=== PATIENT | male | born 1945 | race Caucasian/White ===

== ENCOUNTER → 2016-09-30 | Outpatient (CLI) | payer OTHER ==
[~2016-09-30] MED LIST: KEFLEX500 MG PO; NORCO 5/3251 TABLET PO; ZOFRAN4 MG PO
== END | disposition home or self-care (01) ==
DX: M17.12 Unilateral primary osteoarthritis, left knee (principal); M25.562 Pain in left knee; M25.662 Stiffness of left knee, not elsewhere classified; R26.2 Difficulty in walking, not elsewhere classified; M62.89 Other specified disorders of muscle
CPT/HCPCS: 97110 GP; 97150 GO; 97161 GP; 97165 GO; G8978 GP; G8979 GP; G8980 GP; G8984 GO; G8985 GO; G8986 GO

== ENCOUNTER 2016-11-11 05:43 | Inpatient (IN) | payer OTHER ==
[2016-11-11] VITALS (7 sets, daily range): BP systolic 101–163; BP diastolic 56–77
[~2016-11-11] VITALS: Ht 175.3 cm; Wt 116.3 kg
[~2016-11-11 05:43] MED LIST changes: +DAILY VITE1 EAC1 PO; +IBUPROFEN200 M1 PO; +ZESTRIL2.5 MG PO
[2016-11-11 11:04] LABS: HEMATOCRIT 41.8 % (38.0-50.0); MCH 29.4 PG (29.0-34.0); MCHC 31.6 G/DL (30.0-36.0); MCV 93.1 FL (86-99); MEAN PLAT.VOLUME 10.8 uM^3 (9.0-12.4); PLATELET COUNT 202 K/uL (156-360); RBC DIS.WIDTH-CV 12.6 % (11.8-14.6); RBC DIS.WIDTH-SD 42.4 % (39-53); RED BLOOD COUNT 4.49 M/uL (4.00-5.50); WHITE BLOOD COUNT 6.8 K/uL (4.1-10.2)
[2016-11-12 00:19] VITALS: BP 129/65
[2016-11-12 04:15] VITALS: BP 126/60
[2016-11-12 06:09] LABS: HEMATOCRIT 39.3 % (38.0-50.0); MCV 91.4 FL (86-99)
[2016-11-12 06:26] LABS: ANION GAP 7 MEQ/L (2-14); CHLORIDE 98 MEQ/L (99-109); GFR ESTIMATE (CALCULATED) > 59 mL/min/; GLUCOSE 127 mg/dL (70-99); SAMPLE HEMOLYSIS CHECK 0; SAMPLE ICTERIC CHECK 0; SAMPLE LIPEMIA CHECK 0; SODIUM 133 MEQ/L (136-147); UREA NITROGEN (BUN) 14 mg/dL (9-23)
[2016-11-12 08:00] VITALS: BP 137/60
[2016-11-12 12:14] VITALS: BP 136/63
[2016-11-12 16:32] VITALS: BP 140/80
[2016-11-12 20:21] VITALS: BP 130/75
[2016-11-13 00:15] VITALS: BP 121/73
[2016-11-13 04:00] VITALS: BP 124/62
[2016-11-13 04:57] LABS: MCV 92.5 FL (86-99)
[2016-11-13 08:35] VITALS: BP 117/63
[2016-11-13] MEDS ORDERED: SENNA PLUS TAB1 EACH PO (09:13)
[2016-11-13] MEDS ORDERED: HYDROCODON-ACE1 EAC7 PO (09:13)
[2016-11-13] MEDS ORDERED: LOVENOX40 MG/0.4 SC (09:13)
[2016-11-13 12:11] VITALS: BP 113/64
[2016-11-13 15:01] VITALS: BP 131/67
== END 2016-11-13 15:11 | DRG 470 ==
LOC: 2SOUTH 05:43 → 3WEST 10:28 → 2SOUTH 13:22 → 3WEST 11-13 15:11
PROVIDERS: Orthopaedic Surgery
PROC: 0SRD0J9 Replacement of Left Knee Joint with Synthetic Substitute, Cemented, Open Approach (ICD-10-PCS; principal; 2016-11-11)
PROC: 5A09357 Assistance with Respiratory Ventilation, Less than 24 Consecutive Hours, Continuous Positive Airway Pressure (ICD-10-PCS; 2016-11-11)
DX: M17.12 Unilateral primary osteoarthritis, left knee (principal); G47.33 Obstructive sleep apnea (adult) (pediatric); I71.9 Aortic aneurysm of unspecified site, without rupture; Z88.0 Allergy status to penicillin; Z88.1 Allergy status to other antibiotic agents
CPT/HCPCS: 73560; 80048; 85014; 85018; 85027; 93971; 94660; 97530 GP; J0131; J0690; J1170; J1200; J1650; J2250; J2405; J7050